=== PATIENT | male | born 1950 | race Caucasian/White ===

== ENCOUNTER 2018-07-15 08:19 | Emergency (ER) | payer OTHER ==
[2018-07-15] MEDS: SOD CHLORIDE 0.9% 1,000 ML IV (09:18)
[2018-07-15] MEDS: LORAZEPAM 2 MG INJ IV (09:19)
[2018-07-15 09:20] LABS: ADD MAN DIFF? NO
[2018-07-15 09:28] LABS: WHITE BLOOD COUNT 8.4 10^3/ul (4.8-10.8)
[2018-07-15 09:28] LABS: BASOPHIL # 0.1 10^3/ul (0.0-0.1); BASOPHILS % 0.7 % (0.0-2.0); EOSINOPHILS # 0.2 10^3/ul (0.0-0.5); EOSINOPHILS % 2.4 % (0.0-7.0); HEMATOCRIT 45.9 % (42.0-52.0); LYMPHOCYTES # 1.8 10^3/ul (0.8-2.9); LYMPHOCYTES % 21.4 % (15.0-51.0); MEAN CORPUSCULAR HEMOGLOBIN 30.9 pg (29.0-33.0); MEAN CORPUSCULAR HGB CONC 34.9 g/dl (32.0-37.0); MEAN CORPUSCULAR VOLUME 88.8 fl (82.0-101.0); MEAN PLATELET VOLUME 9.7 fl (7.4-10.4); MONOCYTE # 0.4 10^3/ul (0.3-0.9); NEUTROPHIL # 5.9 10^3/ul (1.6-7.5); NEUTROPHILS % 70.3 % (39.0-77.0); PLATELET COUNT 210 10^3/UL (140-415); RED BLOOD COUNT 5.17 10^6/ul (4.70-6.10); RED CELL DISTRIBUTION WIDTH 12.9 % (11.5-14.5)
[2018-07-15 09:41] LABS: ADD UMIC YES; UR ASCORBIC ACID NEGATIVE (NEGATIVE); UR BACTERIA FEW /HPF (NONE SEEN); UR BILIRUBIN (Dip) NEGATIVE (NEGATIVE); UR BLOOD (Dip) NEGATIVE (NEGATIVE); UR CLARITY SLIGHTLY CLOUDY (CLEAR); UR COLOR YELLOW (YELLOW); UR GLUCOSE (Dip) NEGATIVE (NEGATIVE); UR KETONES (Dip) NEGATIVE (NEGATIVE); UR LEUKOCYTE ESTERASE (Dip) NEGATIVE Leu/ul (NEGATIVE); UR MUCUS FEW /HPF (NONE SEEN); UR NITRITE (Dip) NEGATIVE (NEGATIVE); UR RBC 0 /HPF (0-5); UR SPECIFIC GRAVITY (Dip) 1.015 (1.003-1.030); UR TOTAL PROTEIN (Dip) 2+ mg/dl (NEGATIVE); UR UROBILINOGEN (Dip) NEGATIVE (NEGATIVE); UR WBC 2 /HPF (0-5)
[2018-07-15 09:42] LABS: ALANINE AMINOTRANSFERASE 21 IU/L (13-69); ALBUMIN 4.6 g/dl (3.3-4.9); ALBUMIN/GLOBULIN RATIO 1.48; ALKALINE PHOSPHATASE 105 IU/L (42-121); AMYLASE 68 U/L (11-123); ANION GAP 12 (5-13); ASPARTATE AMINO TRANSFERASE 39 IU/L (15-46); BILIRUBIN,INDIRECT 0.5 mg/dl (0-1.1); BILIRUBIN,TOTAL 0.5 mg/dl (0.2-1.3); BLOOD UREA NITROGEN 24 mg/dl (7-20); CALCIUM 9.9 mg/dl (8.4-10.2); CARBON DIOXIDE 29 mmol/L (21-31); CHLORIDE 101 mmol/L (97-110); CREATININE 0.76 mg/dl (0.61-1.24); Estimated GFR > 60 mL/min (>60); GLUCOSE 202 mg/dl (70-220); LIPASE 105 U/L (23-300); POTASSIUM 4.6 mmol/L (3.5-5.1); SODIUM 142 mmol/L (135-144); TOTAL PROTEIN 7.7 g/dl (6.1-8.1)
[2018-07-15 09:52] LABS: TROPONIN-I 0.014 ng/ml (0.000-0.120)
[2018-07-15 09:54] LABS: PROTIME 13.3 Sec (11.9-14.9)
[2018-07-15 09:55] LABS: PARTIAL THROMBOPLASTIN TIME 30.2 Sec (23.0-35.0)
[2018-07-15 10:56] LABS: D-DIMER 588.89 ng/ml (<460)
[2018-07-15 11:05] LABS: B-TYPE NATRIURETIC PEPTIDE 449 PG/ML (0-125)
[2018-07-15] MEDS: IOHEXOL 100 ML (12:37)
[2018-07-15] MEDS: SOD CHLORIDE 0.9% 100 ML (12:37)
== END 2018-07-15 16:52 | disposition home or self-care (01) ==
LOC: E/R 08:19
DX: R06.02 Shortness of breath (principal); F41.9 Anxiety disorder, unspecified; R40.2252 Coma scale, best verbal response, oriented, at arrival to emergency department; R40.2362 Coma scale, best motor response, obeys commands, at arrival to emergency department; R40.2142 Coma scale, eyes open, spontaneous, at arrival to emergency department; I10 Essential (primary) hypertension; E11.9 Type 2 diabetes mellitus without complications; R10.9 Unspecified abdominal pain; Z79.4 Long term (current) use of insulin; Z85.828 Personal history of other malignant neoplasm of skin
CPT/HCPCS: 71045; 71275; 80053; 81001; 82150; 83690; 83880; 84484; 85025; 85378; 85610; 85730; 87086; 93005; 96361; 96374; 99285-25